=== PATIENT | female | born 1985 | race Caucasian/White ===

== ENCOUNTER 2019-07-31 13:20 | Inpatient (IN) | payer OTHER ==
[~2019-07-31] VITALS: Ht 168 cm; Wt 73.0 kg
[~2019-07-31 13:20] MED LIST: DSS100 PO; FERR-89 PO; IBUP-2071 PO; PREN-217 PO; TYL3 PO
[2019-07-31 13:49] VITALS: BP 116/59
[2019-07-31] MEDS ORDERED: RINGERS SOLUTION,LACTATED 1,000 ML IV ONE ×2 (14:45→16:31)
[2019-07-31] MEDS ORDERED: BUPIVACAINE HCL/DEX-WATER/PF 0.75% 2 ML AMP ONE (16:38)
[2019-07-31] MEDS ORDERED: ACETAMINOPHEN 1000 MG/ISO-OSM 100 ML IV ONE (16:38)
[2019-07-31] MEDS ORDERED: FentaNYL CITRATE-PF 100 MCG/2 ML VIAL ONE (16:38)
[2019-07-31] MEDS ORDERED: MORPHINE SULFATE/PF 1 MG/ML 10 ML AMP ONE (16:38)
[2019-07-31] MEDS ORDERED: NALOXONE HCL 0.4 MG/ML VIAL IVP PRN (16:45)
[2019-07-31] MEDS ORDERED: ONDANSETRON HCL 4 MG/2 ML VIAL IVP PRN (16:45)
[2019-07-31] MEDS ORDERED: FentaNYL CITRATE-PF 100 MCG/2 ML VIAL IVP PRN ×2 (16:45→17:30)
[2019-07-31] MEDS ORDERED: MORPHINE SULFATE 10 MG/ML SYRINGE IVP PRN (16:45)
[2019-07-31] MEDS ORDERED: CITRIC ACID/SODIUM CITRATE 30 ML SOLUTION UDCUP PO ONE (16:45)
[2019-07-31] MEDS ORDERED: CefoTEtan DISOD 2 GM/DEXTROSE 50 ML IV ONE (16:45)
[2019-07-31] MEDS ORDERED: METOCLOPRAMIDE HCL 5 MG/ML 2 ML VIAL IVP ONE (16:45)
[2019-07-31] MEDS ORDERED: DiphenhydrAMINE HCL 50 MG/ML VIAL IVP PRN (16:45)
[2019-07-31] MEDS ORDERED: NALBUPHINE HCL 10 MG/ML VIAL IVP PRN ×2 (16:45)
[2019-07-31 17:01] LABS: BASOPHILS % (AUTO) 0.5 % (0.0-2.0); EOSINOPHILS % (AUTO) 0.7 % (1.0-6.0); HEMATOCRIT 40.2 % (36-46); HEMOGLOBIN 13.6 g/dL (12.0-16.0); LYMPHOCYTES # (AUTO) 1.6 K/uL (1.0-4.8); MEAN CORPUSCULAR HEMOGLOBIN 31.6 pg (26.0-34.0); MEAN CORPUSCULAR HGB CONC 33.8 G/dL (31.0-37.0); MEAN CORPUSCULAR VOLUME 94 fL (80-100); MONOCYTES # (AUTO) 0.7 K/uL (0.1-1.0); MONOCYTES % (AUTO) 6.5 % (2.0-9.0); NEUTROPHILS % (AUTO) 77.3 % (40.0-70.0); PLATELET COUNT (AUTO)-OB 173 K/uL (150-450); RED CELL DISTRIBUTION WIDTH 13.7 % (11.5-14.5)
[2019-07-31] MEDS ORDERED: MEPERIDINE-PF 25 MG/ML VIAL IVP PRN (17:30)
[2019-07-31] MEDS ORDERED: GLYCERIN/WITCH HAZEL LEAF 40 PADS JAR TP PRN (18:15)
[2019-07-31] MEDS ORDERED: DEXTROSE 5%-0.45% SODIUM CHL 1,000 ML IV SCH (18:15)
[2019-07-31] MEDS ORDERED: OxyCODONE HCL/ACETAMINOPHEN 5-325 MG TABLET PO PRN (18:15)
[2019-07-31] MEDS: OXYTOCIN 20 UNITS/LACT RINGERS 1,000 ML IV SCH (18:51)
[2019-07-31] MEDS ORDERED: OXYGEN THERAPY IH SCH ×2 (20:00)
[2019-07-31] MEDS ORDERED: INFLUENZA VIRUS VACCINE QVS 2019-20 (3YR+)/PF 60 MCG/0.5 ML SYRINGE IM ONE (20:15)
[2019-07-31] MEDS: KETOROLAC TROMETHAMINE 30 MG/ML VIAL IVP SCH (23:18)
[2019-08-01] MEDS: ACETAMINOPHEN 1000 MG/ISO-OSM 100 ML IV SCH ×3 (01:47→18:23)
[2019-08-01] MEDS: OXYTOCIN 20 UNITS/LACT RINGERS 1,000 ML IV SCH (02:15)
[2019-08-01] MEDS: KETOROLAC TROMETHAMINE 30 MG/ML VIAL IVP SCH (05:32)
[2019-08-01] MEDS ORDERED: DEXAMETHASONE SOD PHOS 4 MG/ML VIAL IVP ONE (05:46)
[2019-08-01] MEDS ORDERED: ONDANSETRON HCL 4 MG/2 ML VIAL IVP ONE (05:46)
[2019-08-01] MEDS ORDERED: EPHEDrine SULFATE 50 MG/ML VIAL IM ONE (05:46)
[2019-08-01] MEDS ORDERED: OXYTOCIN 10 UNITS/ML VIAL IM ONE (05:46)
[2019-08-01] MEDS ORDERED: PHENYLEPHRINE HCL 10 MG/ML VIAL IVP ONE (05:46)
[2019-08-01 07:23] LABS: BASOPHILS % (AUTO) 0.3 % (0.0-2.0); EOSINOPHILS % (AUTO) 0.3 % (1.0-6.0); HEMATOCRIT 31.8 % (36-46); HEMOGLOBIN 10.8 g/dL (12.0-16.0); LYMPHOCYTES # (AUTO) 1.3 K/uL (1.0-4.8); LYMPHOCYTES % (AUTO) 10.8 % (22.0-44.0); MEAN CORPUSCULAR HGB CONC 33.9 G/dL (31.0-37.0); MEAN CORPUSCULAR VOLUME 94 fL (80-100); MONOCYTES # (AUTO) 1.2 K/uL (0.1-1.0); MONOCYTES % (AUTO) 9.8 % (2.0-9.0); NEUTROPHILS # (AUTO) 9.3 K/uL (1.8-7.7); NEUTROPHILS % (AUTO) 78.8 % (40.0-70.0); PLATELET COUNT (AUTO)-OB 145 K/uL (150-450); RED BLOOD CELL COUNT(AUTO) 3.37 MIL/uL (4.00-5.20); RED CELL DISTRIBUTION WIDTH 13.5 % (11.5-14.5)
[2019-08-01] MEDS: MAGNESIUM HYDROXIDE SUSPENSION 30 ML UDCUP PO SCH ×2 (09:00→21:08)
[2019-08-01] MEDS: IBUPROFEN 600 MG TABLET PO PRN (16:33)
[2019-08-01] MEDS ORDERED: LANOLIN 7 GM OINTMENT TP ONE (17:15)
[2019-08-02] MEDS: IBUPROFEN 600 MG TABLET PO PRN ×3 (02:48→21:41)
[2019-08-02] MEDS: OxyCODONE HCL/ACETAMINOPHEN 5-325 MG TABLET PO PRN ×3 (02:48→16:48)
[2019-08-02] MEDS: MAGNESIUM HYDROXIDE SUSPENSION 30 ML UDCUP PO SCH ×2 (12:19→21:41)
[2019-08-03] MEDS: OxyCODONE HCL/ACETAMINOPHEN 5-325 MG TABLET PO PRN (03:27)
[2019-08-03] MEDS: IBUPROFEN 600 MG TABLET PO PRN (06:16)
[2019-08-03] MEDS ORDERED: SENNA/DOCUSATE SODIUM 8.6-50 MG TABLET PO ONE (08:30)
[2019-08-03] MEDS ORDERED: PERCT PO (08:50)
[2019-08-03] MEDS: MAGNESIUM HYDROXIDE SUSPENSION 30 ML UDCUP PO SCH (09:26)
== END 2019-08-03 11:45 | disposition home or self-care (01) | DRG 788 ==
LOC: 4S 13:20 → OBSVTOIN 13:20 → 4S 16:35
PROVIDERS: ADMIT Obstetrics & Gynecology; ATTEND Obstetrics & Gynecology
PROC: 10D00Z1 Extraction of Products of Conception, Low, Open Approach (ICD-10-PCS; principal; 2019-07-31)
DX: O34.211 Maternal care for low transverse scar from previous cesarean delivery (principal); Z3A.37 37 weeks gestation of pregnancy; Z37.0 Single live birth
CPT/HCPCS: 86850; 86870; 86900; 86901; 87081; J0131; J0690; J1100; J1885; J2370; J2405; J2590; J2765; J3010; J3490; J7120